=== PATIENT | male | born 1995 | race Caucasian/White ===

== ENCOUNTER 2017-07-22 18:06 | Emergency (ER) | payer OTHER ==
[2017-07-22] MEDS: LIDOCAINE 1%/EPI 30 ML INJ INJ ×2 (22:32→22:45)
[2017-07-22] MEDS: IBUPROFEN 600 MG TAB PO (22:32)
== END 2017-07-23 00:26 | disposition home or self-care (01) ==
LOC: FTE 07-23 00:26
DX: L02.31 Cutaneous abscess of buttock (principal)
CPT/HCPCS: 10060; 99284-25

== ENCOUNTER 2017-07-25 09:01 | Emergency (ER) | payer OTHER | END 2017-07-25 10:25 | disposition home or self-care (01) | LOC: E/R 10:25 | DX: Z48.01 Encounter for change or removal of surgical wound dressing (principal); I10 Essential (primary) hypertension | CPT/HCPCS: 99284; Z7502 ==

== ENCOUNTER 2018-01-15 12:11 | Emergency (ER) | payer OTHER ==
[2018-01-15] MEDS: LIDOCAINE 1%/EPI (MDV) 50 ML INJ INJ (14:58)
[2018-01-15] MEDS: LIDOCAINE 1%/EPI 30 ML INJ INJ (14:58)
[2018-01-15] MEDS: IBUPROFEN 800 MG TAB PO (14:59)
== END 2018-01-15 15:28 | disposition home or self-care (01) ==
LOC: E/R 12:11
DX: L05.01 Pilonidal cyst with abscess (principal); I10 Essential (primary) hypertension
CPT/HCPCS: 10080; 99284-25

== ENCOUNTER 2018-01-19 10:28 | Emergency (ER) | payer OTHER | END 2018-01-19 12:03 | disposition home or self-care (01) | LOC: FTE 10:28 | DX: L05.01 Pilonidal cyst with abscess (principal); I10 Essential (primary) hypertension | CPT/HCPCS: 99283; Z7502 ==